=== PATIENT | female | born 2000 | race Caucasian/White ===

== ENCOUNTER 2019-12-11 23:29 | Emergency (ER) | payer MEDICAID ==
[~2019-12-11] VITALS: Ht 172.7 cm; Wt 118.2 kg
[~2019-12-11 23:29] MED LIST: DICY10CA59 PO; NO HOME MEDS
[2019-12-12] MEDS ORDERED: pantoprazole 40 MG vial IV ONE (00:05)
[2019-12-12] MEDS ORDERED: ondansetron/PF 4mg/2ml inj IV ONE (00:05)
[2019-12-12] MEDS ORDERED: normal saline 1000ML IV soln IVB ONE (00:05)
[2019-12-12] MEDS ORDERED: LORazepam 2 mg/ml vial IV ONE (00:05)
[2019-12-12] MEDS ORDERED: dicyclomine 10mg/ml 2ml ampule IM ONE (00:05)
[2019-12-12 00:18] LABS: CLARITY,URINE SLIGHTLY CLOUDY (Clear); COLOR,URINE YELLOW (Yellow); GLUCOSE, URINE NEGATIVE (Neg); KETONES,URINE NEGATIVE (Neg); LEUKOCYTE ESTERASE ,URINE TRACE (Neg); NITRITES, URINE NEGATIVE (Neg); OCCULT BLOOD,URINE NEGATIVE (Neg); PROTEIN,URINE NEGATIVE (Neg); UROBILINOGEN,URINE 0.2 E.U/dL (0.2-1.0)
[2019-12-12 00:21] LABS: BASOPHILS # (AUTO) 0.1 X10'3 (0-0.2); BASOPHILS % (AUTO) 0.5 % (0-1); EOSINOPHILS # (AUTO) 0.3 X10'3 (0-0.9); EOSINOPHILS % (AUTO) 1.9 % (0-6); HEMATOCRIT 41.6 % (35.0-45.0); LYMPHOCYTES # (AUTO) 1.6 X10'3 (1.1-4.8); LYMPHOCYTES % (AUTO) 12.2 % (21-51); MEAN CORPUSCULAR HEMOGLOBIN 27.5 PG (27.0-31.0); MEAN CORPUSCULAR HGB CONC 33.6 g/dL (33.0-36.5); MEAN CORPUSCULAR VOLUME 81.9 FL (78-98); MEAN PLATELET VOLUME 9.1 FL (7.4-10.4); MONOCYTES # (AUTO) 0.5 X10'3 (0-0.9); MONOCYTES % (AUTO) 3.4 % (2-12); NEUTROPHILS # (AUTO) 10.8 X10'3 (1.8-7.7); PLATELET COUNT 299 X10'3 (140-440); RED BLOOD COUNT 5.08 X10'6 (4.20-5.60); RED CELL DISTRIBUTION WIDTH 14.1 % (11.5-14.5); WHITE BLOOD COUNT 13.2 X10'3 (4.5-11.0)
[2019-12-12 00:25] LABS: UA COLLECTION TYPE CLN CATCH MIDSTREAM
[2019-12-12 00:28] LABS: BACTERIA,URINE 1+ /HPF (Neg); RBC,URINE 0-2 /HPF (0-2); SQUAMOUS EPITHELIAL CELL,UR MODERATE /LPF (FEW)
[2019-12-12 00:32] LABS: ALANINE AMINOTRANSFERASE 34 U/L (12-78); ALBUMIN 3.4 G/DL (3.4-5.0); ALBUMIN/GLOBULIN RATIO 0.8 (1.1-1.5); ALKALINE PHOSPHATASE 124 IU/L (46-116); ANION GAP 5 (8-16); ASPARTATE AMINO TRANSFERASE 19 U/L (10-37); BILIRUBIN,TOTAL 0.2 MG/DL (0.1-1.0); BLOOD UREA NITROGEN 13 MG/DL (7-18); BUN/CREATININE RATIO 12.5 (6.6-38.0); CALCIUM 8.6 MG/DL (8.5-10.1); CHLORIDE 106 MMOL/L (99-107); CREATININE 1.04 MG/DL (0.40-0.90); GLUCOSE 98 MG/DL (70-104); LIPASE 126 U/L (73-393); POTASSIUM 3.4 MMOL/L (3.5-5.1); SODIUM 140 MMOL/L (135-145); TOTAL CARBON DIOXIDE 28.9 MMOL/L (24-32); TOTAL PROTEIN 7.5 G/DL (6.4-8.2); eGFR 67 ML/MIN
[2019-12-12 01:00] VITALS: BP 135/71
[2019-12-12 01:00] LABS: TOTAL CELLS COUNTED 100
[2019-12-12 01:01] LABS: LARGE PLATELETS FEW; PLATELET ESTIMATE NORMAL
== END 2019-12-12 01:20 | disposition home or self-care (01) ==
LOC: ER 23:30
DX: R10.13 Epigastric pain (principal); R10.12 Left upper quadrant pain; R19.7 Diarrhea, unspecified; R11.10 Vomiting, unspecified; G43.909 Migraine, unspecified, not intractable, without status migrainosus; K21.9 Gastro-esophageal reflux disease without esophagitis; F32.9 Major depressive disorder, single episode, unspecified; F41.9 Anxiety disorder, unspecified; Z88.1 Allergy status to other antibiotic agents
CPT/HCPCS: 36415; 80053; 81001; 83690; 85025; 87088; 96361; 96372; 96374; 96375; 99284; C9113; J0500; J2060; J2405; J7030

== ENCOUNTER 2023-02-24 11:23 | Emergency (ER) | payer MEDICAID ==
[~2023-02-24] VITALS: Ht 172.7 cm; Wt 127.3 kg
[2023-02-24 11:27] VITALS: BP 143/92
[2023-02-24] MEDS ORDERED: ketorolac trometh inj. 60 MG/2 ML VIAL IM ONE (14:35)
[2023-02-24] MEDS ORDERED: ketorolac trometh. 30mg/ml inj. IM ONE (14:35)
== END 2023-02-24 15:31 | disposition home or self-care (01) ==
LOC: ER 11:23
DX: M54.50 Low back pain, unspecified (principal); M54.6 Pain in thoracic spine; G43.909 Migraine, unspecified, not intractable, without status migrainosus; K21.9 Gastro-esophageal reflux disease without esophagitis; F41.9 Anxiety disorder, unspecified; F32.9 Major depressive disorder, single episode, unspecified; Z72.89 Other problems related to lifestyle; W18.39XA Other fall on same level, initial encounter; Y93.89 Activity, other specified; Y92.89 Other specified places as the place of occurrence of the external cause; Y99.8 Other external cause status
CPT/HCPCS: 72070; 72110; 72220; 96372; 99284; J1885